=== PATIENT | female | born 1935 | race Caucasian/White ===

== ENCOUNTER 2020-03-28 12:05 | Emergency (ER) | payer MEDICARE ==
[~2020-03-28] VITALS: Ht 172.7 cm; Wt 97.1 kg
== END 2020-03-28 19:15 | disposition home or self-care (01) ==
LOC: ER 12:27
DX: S80.11XA Contusion of right lower leg, initial encounter (principal); S50.811A Abrasion of right forearm, initial encounter; W18.30XA Fall on same level, unspecified, initial encounter; I10 Essential (primary) hypertension; R53.1 Weakness
CPT/HCPCS: 99283